=== PATIENT | female | born 1990 | race Caucasian/White ===

== ENCOUNTER 2021-04-10 14:55 | Day surgery (SDC) | payer MEDICAID ==
[2021-04-10] MEDS ORDERED: Lactated Ringer's 1,000 ML IV SCH (15:30)
[2021-04-10 15:57] LABS: Bilirubin Neg (Negative); Blood, Urine Negative (Negative); Clarity Clear (Clear); Glucose, Urine (Dipstick) Normal (Negative); Ketone, Urine 5 mg/dL (Negative); Leukocyte Negative (Negative); Nitrite Negative (Negative); Protein, Urine (Dipstick) Negative (Neg-Trace); Urobilinogen Normal mg/dL (Less than 2)
[2021-04-10 16:25] LABS: Bacteria/HPF Rare-Few HPF (None Seen); RBC/HPF 0-3 HPF (0-3); Squamous Epithelial 0-3 HPF (0-3); Transitional Epithelial 0-3 HPF (None Seen); WBC/HPF 0-3 HPF (0-3)
[2021-04-10] MEDS ORDERED: HYDROcodone/Acetaminophen 5/325 mg Tablet PO SCH (18:00)
== END 2021-04-10 19:00 | disposition home or self-care (01) ==
LOC: CSHLD/OP 14:55
PROVIDERS: ATTEND Family Medicine
DX: O99.891 Other specified diseases and conditions complicating pregnancy (principal); N13.30 Unspecified hydronephrosis; Z3A.24 24 weeks gestation of pregnancy; Z88.5 Allergy status to narcotic agent; Z79.899 Other long term (current) drug therapy
CPT/HCPCS: 76770; 76815; 81001; 96360; 96361; 99283

== ENCOUNTER 2021-06-22 13:18 | Day surgery (SDC) | payer OTHER ==
[2021-06-22] MEDS ORDERED: Acetaminophen 500 MG TAB PO PRN (14:16)
[2021-06-22] MEDS ORDERED: hydrALAZINE 20 MG/ML VIAL SLOW IVP PRN (14:16)
[2021-06-22 15:44] LABS: Bilirubin Neg (Negative); Blood, Urine Negative (Negative); Clarity Clear (Clear); Glucose, Urine (Dipstick) Normal (Negative); Ketone, Urine 50 mg/dL (Negative); Leukocyte Negative (Negative); Nitrite Negative (Negative); Protein, Urine (Dipstick) 30 mg/dl (Neg-Trace); Specific Gravity, Urine 1.015 (1.002-1.036); Urobilinogen Normal mg/dL (Less than 2); pH, Urine 6.5 (5.0-9.0)
[2021-06-22 15:51] LABS: Urine Culture Reflex No No
[2021-06-22 15:52] LABS: Bacteria/HPF None Seen HPF (None Seen); RBC/HPF 0-3 HPF (0-3); WBC/HPF 0-3 HPF (0-3)
[2021-06-22 16:11] LABS: Hemoglobin 9.3 g/dL (12.0-15.5); Mean Corpuscular HGB CONC 31.4 g/dL (32.0-36.0); Mean Corpuscular Hemoglobin 25.9 pg (27.0-33.0); Mean Corpuscular Volume 82.5 fl (81.6-98.3); RBC Distribution Width 12.8 % (11.5-14.5); Red Blood Cell (RBC) Count 3.59 10x6/uL (3.90-5.03); White Blood Cell (WBC) Count 5.1 10x3/uL (3.5-10.5)
[2021-06-22 16:14] LABS: Platelet Count 119 10x3/uL (150-450)
[2021-06-22 16:26] LABS: SARS-CoV-2 NAA Rapid Test DETECTED (NotDetected)
[2021-06-22 16:54] LABS: MDiff Complete? YES
[2021-06-22 16:58] LABS: Lymphocytes 5 % (21-51); Reactive Lymphocytes 1 % (0-10)
[2021-06-22 16:59] LABS: Monocytes 16 % (0-10); Neutrophil 78 % (42-75); Platelet Morphology Comment Appears Decreased
== END 2021-06-22 17:25 | disposition home or self-care (01) ==
LOC: CSHLD/OP 13:18
PROVIDERS: ATTEND Family Medicine
DX: O98.513 Other viral diseases complicating pregnancy, third trimester (principal); U07.1 COVID-19; Z3A.35 35 weeks gestation of pregnancy; Z88.5 Allergy status to narcotic agent
CPT/HCPCS: 0240U; 81001; 85025; 99283

== ENCOUNTER 2021-07-10 19:20 | Inpatient (IN) | payer OTHER ==
[~2021-07-10 19:20] MED LIST: Penicillin G 2.5 MILL.units 2.5 MILL.UNITS in Premix Bag 1 BAG IVPB SCH
[2021-07-10] MEDS ORDERED: Lidocaine 1% (PF) 30 ML VIAL SC PRN (19:57)
[2021-07-10] MEDS ORDERED: hydrALAZINE 20 MG/ML VIAL SLOW IVP PRN (19:57)
[2021-07-10] MEDS ORDERED: Promethazine HCl 25 MG/ML VIAL IM PRN (19:57)
[2021-07-10] MEDS ORDERED: Ondansetron PF 4 MG/2 ML Vial IVP PRN (19:57)
[2021-07-10] MEDS ORDERED: Misoprostol 200 MCG TAB PR PRN (19:57)
[2021-07-10] MEDS ORDERED: Ibuprofen 800 MG TAB PO PRN (19:57)
[2021-07-10] MEDS ORDERED: Diphenoxylate HCl/Atropine Tablet PO PRN ×2 (19:57)
[2021-07-10] MEDS ORDERED: Carboprost 250 MCG/ML AMP IM PRN (19:57)
[2021-07-10] MEDS ORDERED: NS w/ Oxytocin 30 units 500 ML IV SCH ×2 (20:00)
[2021-07-10] MEDS ORDERED: Penicillin G Potassium 5 MILL.UNITS in Sodium Chloride 0.9% 100 ML IVPB SCH (20:15)
[2021-07-10 21:29] LABS: Creatinine, Urine 99.53 mg/dL (47-110)
[2021-07-10 22:18] LABS: Hemoglobin 9.9 g/dL (12.0-15.5); Mean Corpuscular HGB CONC 32.1 g/dL (32.0-36.0); Mean Corpuscular Hemoglobin 26.4 pg (27.0-33.0); Mean Corpuscular Volume 82.1 fl (81.6-98.3); Platelet Count 111 10x3/uL (150-450); RBC Distribution Width 13.3 % (11.5-14.5); Red Blood Cell (RBC) Count 3.75 10x6/uL (3.90-5.03); White Blood Cell (WBC) Count 6.8 10x3/uL (3.5-10.5)
[2021-07-10 22:27] LABS: ALT (SGPT) 7 U/L (8-55); AST (SGOT) 17 U/L (5-34); Alkaline Phosphatase 131 U/L (40-110); Anion Gap 11 mmol/L (10-20); BUN (Urea Nitrogen) 12 mg/dL (7.0-18.7); Bilirubin, Total 0.3 mg/dL (0.2-1.2); Calc. Creatinine Clearance 0 mL/min (70-130); Carbon Dioxide 23 mmol/L (22-29); Chloride 107 mmol/L (98-107); Globulin 2.4 g/dL (2.4-3.5); Glucose 98 mg/dL (70-105); Potassium 3.9 mmol/L (3.5-5.1); Protein, Total 5.4 g/dL (6.0-8.3); Sodium 137 mmol/L (136-145)
[2021-07-10] MEDS: Misoprostol 100 MCG TAB VAG SCH (22:40)
[2021-07-10 22:46] LABS: HBSAg Index 0.21 S/CO (0-0.99); Hep B Surf Ag Non-Reactive S/CO (NonReactive); Syphilis Antibody Nonreactive (Nonreactive); Syphilis Antibody Index 0.02 S/CO (<1.00 Non-Reactive)
[2021-07-11 00:02] VITALS: BMI 39.9
[2021-07-11] MEDS: Misoprostol 100 MCG TAB VAG SCH ×4 (02:05→10:39)
[2021-07-11] MEDS: Penicillin G 2.5 MILL.units 2.5 MILL.UNITS in Premix Bag 1 BAG IVPB SCH ×3 (02:29→11:46)
[2021-07-11] MEDS ORDERED: Magnesium Sulfate 20 gm/500 ml 20 GM/500 ML BAG ONE (03:08)
[2021-07-11] MEDS ORDERED: hydrALAZINE 20 MG/ML VIAL SLOW IVP PRN ×2 (04:05→11:31)
[2021-07-11] MEDS ORDERED: Magnesium Sulfate 20 gm/500 ml 4 GM/100 ML BAG IVPB ONE (04:15)
[2021-07-11] MEDS ORDERED: Calcium Gluc 4.6 MEQ/10 ML (100 MG/ML) IV PRN (04:15)
[2021-07-11] MEDS ORDERED: Bupivacaine PF 0.5% 30 ML VIAL ONE (08:00)
[2021-07-11] MEDS ORDERED: Bupivacaine 0.25% HCL 30 ML VIAL ONE (08:00)
[2021-07-11] MEDS ORDERED: ePHEDrine Sulfate 50 MG/10 ML VIAL ONE (08:00)
[2021-07-11] MEDS: Lactated Ringer's 1,000 ML IV SCH ×2 (08:30→11:43)
[2021-07-11] MEDS: Acetaminophen 500 MG TAB PO PRN ×2 (10:48→17:15)
[2021-07-11] MEDS: Magnesium Sulfate 20 gm/500 ml 20 GM/500 ML BAG IVPB PRN ×2 (11:53→22:12)
[2021-07-11] MEDS ORDERED: Labetalol HCl 100 MG/20 ML VIAL ONE (17:47)
[2021-07-11] MEDS ORDERED: Labetalol HCl 100 MG/20 ML VIAL SLOW IVP PRN (18:56)
[2021-07-12] MEDS: Acetaminophen 500 MG TAB PO PRN ×2 (00:19→07:42)
[2021-07-12] MEDS: Misoprostol 100 MCG TAB VAG SCH ×3 (00:28→07:45)
[2021-07-12 06:09] LABS: Magnesium 5.4 mg/dL (1.6-2.6)
[2021-07-12] MEDS: Magnesium Sulfate 20 gm/500 ml 20 GM/500 ML BAG IVPB PRN ×2 (08:34→19:28)
[2021-07-12] MEDS ORDERED: Fentanyl 2 mcg/Bup 0.1% Cadd 100 ML ONE (11:11)
[2021-07-12] MEDS: Lactated Ringer's 1,000 ML IV SCH ×2 (12:32→16:54)
[2021-07-12] MEDS: Penicillin G 2.5 MILL.units 2.5 MILL.UNITS in Premix Bag 1 BAG IVPB SCH ×3 (12:55→21:51)
[2021-07-12] MEDS ORDERED: Hydrocerin (Eucerin) Cream 120 gm Jar TOP PRN (13:07)
[2021-07-12] MEDS ORDERED: Ondansetron PF 4 MG/2 ML Vial IVP PRN (13:07)
[2021-07-12] MEDS ORDERED: Lactated Ringer's 500 ML IV PRN (13:07)
[2021-07-12] MEDS ORDERED: diphenhydrAMINE 50 MG/ML VIAL IVP PRN (13:07)
[2021-07-12] MEDS ORDERED: Promethazine HCl 25 MG/ML VIAL IM PRN (13:07)
[2021-07-12] MEDS ORDERED: ePHEDrine Sulfate 50 MG/10 ML VIAL SLOW IVP PRN (13:07)
[2021-07-12] MEDS ORDERED: Naloxone HCl 0.4 mg/ml Vial IVP PRN ×2 (13:07)
[2021-07-12] MEDS ORDERED: Acetaminophen 325 MG TAB PO PRN (13:07)
[2021-07-12] MEDS ORDERED: Communication Order-Pharmacy FS SCH (13:15)
[2021-07-12] MEDS ORDERED: Fentanyl 2 mcg/Bupivacaine 0.1% Cassette 100 ML EPIDURAL SCH (13:15)
[2021-07-12] MEDS ORDERED: Famotidine 20 MG TAB PO PRN (20:18)
[2021-07-12] MEDS ORDERED: Calcium Carbonate 500 MG ChewTAB PO PRN (20:18)
[2021-07-12] MEDS ORDERED: Tranexamic Acid 1,000 MG/10 ML VIAL ONE (22:09)
[2021-07-12] MEDS ORDERED: Carboprost 250 MCG/ML AMP ONE (22:11)
[2021-07-12] MEDS ORDERED: Misoprostol 200 MCG TAB ONE (22:12)
[2021-07-12] MEDS ORDERED: Lidocaine 1% (PF) 30 ML VIAL ONE (22:32)
[2021-07-13] MEDS ORDERED: Boostrix 0.5 ML (Tdap) VIAL IM ONE (01:05)
[2021-07-13] MEDS ORDERED: Ondansetron PF 4 MG/2 ML Vial IVP PRN (01:05)
[2021-07-13] MEDS ORDERED: Promethazine HCl 25 MG/ML VIAL IM PRN (01:05)
[2021-07-13] MEDS ORDERED: Milk Of Magnesia 30 ML UDCUP PO PRN (01:05)
[2021-07-13] MEDS ORDERED: Preparation H Ointment 28 GM TUBE PR PRN (01:05)
[2021-07-13] MEDS ORDERED: HYDROcodone/Acetaminophen 5/325 mg Tablet PO PRN (01:05)
[2021-07-13] MEDS ORDERED: Benzocaine-Menthol 82.5 ML CAN TOP PRN (01:05)
[2021-07-13] MEDS ORDERED: Labetalol HCl 100 MG/20 ML VIAL SLOW IVP PRN (01:05)
[2021-07-13] MEDS ORDERED: Bisacodyl 10 MG SUPP PR PRN (01:05)
[2021-07-13] MEDS ORDERED: NS w/ Oxytocin 30 units 500 ML IV SCH (01:05)
[2021-07-13] MEDS ORDERED: diphenhydrAMINE 25 MG CAP PO PRN (01:05)
[2021-07-13] MEDS ORDERED: Lanolin Ointment 7 GM TUBE TOP PRN (01:05)
[2021-07-13] MEDS: Magnesium Sulfate 20 gm/500 ml 20 GM/500 ML BAG IVPB PRN ×2 (05:20→15:07)
[2021-07-13] MEDS: Ibuprofen 800 MG TAB PO SCH ×3 (06:01→23:44)
[2021-07-13 06:06] LABS: Magnesium 5.5 mg/dL (1.6-2.6)
[2021-07-13] MEDS ORDERED: Losartan 25 MG TAB PO SCH (09:00)
[2021-07-13] MEDS: HYDROcodone/Acetaminophen 5/325 mg Tablet PO PRN ×2 (09:01→20:36)
[2021-07-13] MEDS: Lactated Ringer's 1,000 ML IV SCH (20:47)
[2021-07-13] MEDS: Docusate 100 MG CAP PO SCH (23:44)
[2021-07-14] MEDS: Ferrous Sulfate 325 MG TAB PO SCH ×3 (02:32→17:55)
[2021-07-14] MEDS: Prenatal Vitamin 1 TAB PO SCH ×2 (02:32→09:08)
[2021-07-14] MEDS: Docusate 100 MG CAP PO SCH ×2 (02:32→09:08)
[2021-07-14] MEDS ORDERED: Enalaprilat Dihydrate 1.25 MG/ML VIAL SLOW IVP PRN (07:37)
[2021-07-14] MEDS: Losartan Potassium 50 MG TAB PO SCH (09:08)
[2021-07-14] MEDS: Hydrochlorothiazide 25 MG TAB PO SCH (09:09)
[2021-07-14] MEDS: Ibuprofen 800 MG TAB PO SCH ×2 (09:09→17:55)
[2021-07-14] MEDS: Misoprostol 100 MCG TAB VAG SCH ×4 (20:19→20:25)
[2021-07-14] MEDS: Penicillin G 2.5 MILL.units 2.5 MILL.UNITS in Premix Bag 1 BAG IVPB SCH ×2 (20:20→20:21)
[2021-07-14] MEDS: Lactated Ringer's 1,000 ML IV SCH (20:22)
[2021-07-15] MEDS: Ibuprofen 800 MG TAB PO SCH ×3 (00:41→16:01)
[2021-07-15] MEDS: Docusate 100 MG CAP PO SCH ×2 (00:41→08:21)
[2021-07-15] MEDS: Ferrous Sulfate 325 MG TAB PO SCH (08:20)
[2021-07-15] MEDS: Prenatal Vitamin 1 TAB PO SCH (08:20)
[2021-07-15] MEDS: Hydrochlorothiazide 25 MG TAB PO SCH (08:21)
[2021-07-15] MEDS: Losartan Potassium 50 MG TAB PO SCH (08:21)
[2021-07-15 16:17] VITALS: BP 138/86; TEMP 99
== END 2021-07-15 18:45 | disposition home or self-care (01) | DRG 806 ==
LOC: CSHLD/OP 19:20 → CSHLD 20:00 → CSHPP 07-14 01:32
PROVIDERS: ADMIT Family Medicine; ATTEND Family Medicine
PROC: 3E033VJ Introduction of Other Hormone into Peripheral Vein, Percutaneous Approach (ICD-10-PCS; principal; 2021-07-12)
PROC: 10E0XZZ Delivery of Products of Conception, External Approach (ICD-10-PCS; 2021-07-12)
PROC: 10907ZC Drainage of Amniotic Fluid, Therapeutic from Products of Conception, Via Natural or Artificial Opening (ICD-10-PCS; 2021-07-12)
PROC: 0UQGXZZ Repair Vagina, External Approach (ICD-10-PCS; 2021-07-12)
PROC: 0UQMXZZ Repair Vulva, External Approach (ICD-10-PCS; 2021-07-12)
DX: O11.4 Pre-existing hypertension with pre-eclampsia, complicating childbirth (principal); I47.1 Supraventricular tachycardia; Z37.0 Single live birth; O99.42 Diseases of the circulatory system complicating childbirth; O71.4 Obstetric high vaginal laceration alone; Z3A.38 38 weeks gestation of pregnancy; Z88.5 Allergy status to narcotic agent
CPT/HCPCS: 36415; 51702; 80053; 82570; 83735; 84156; 85027; 86780; 86850; 86900; 86901; 87340; 93005; 93010; 99285; J0360; J2540; J2590; J3475; J3490; J7120; S0020